=== PATIENT | female | born 1995 | race Caucasian/White ===

== ENCOUNTER 2020-01-14 08:13 | Inpatient (IN) | payer MEDICAID ==
[~2020-01-14] VITALS: Ht 167.6 cm; Wt 61.0 kg
[~2020-01-14 08:13] MED LIST: IBUP50CH2
[2020-01-14] MEDS ORDERED: SODIUM CHLORIDE 0.9% 1,000 ML IV ONE ×2 (08:19)
[2020-01-14] MEDS ORDERED: ONDANSETRON HCL 4 MG/2 ML VIAL IV ONE (08:30)
[2020-01-14] MEDS ORDERED: HYDROmorphone HCL 2 MG/ML VL IV ONE (08:30)
[2020-01-14 08:54] LABS: Basophils # (auto) 0 10 ^3/uL (0-0.2); Basophils % (auto) 0.7 % (0.0-2.0); Eosinophils # (auto) 0.1 10 ^3/uL (0-0.8); Eosinophils % (auto) 1.5 % (0.0-7.0); Hematocrit 47.5 % (36.0-46.0); Hemoglobin 15.3 g/dL (12.2-16.2); Lymphocytes # (auto) 2.4 10 ^3/uL (0.4-5.4); Lymphocytes % (auto) 37.3 % (10.0-50.0); Mean Corpuscular Hemoglobin 30.4 pg (28.0-32.0); Mean Corpuscular Hgb Conc. 32.1 g/dL (32.0-36.0); Mean Corpuscular Volume 94.4 fL (80.0-100.0); Monocytes # (auto) 0.5 10 ^3/uL (0-1.3); Monocytes % (auto) 8.4 % (0.0-12.0); Neutrophils # (auto) 3.4 10 ^3/uL (1.6-8.6); Neutrophils % (auto) 52.1 % (37.0-80.0); Nucleated Red Blood Cells % 0.2 %; Platelet Count (auto) 221 10^3/uL (140-450); Red Blood Cells 5.03 10^6/uL (4.0-5.20); Red Cell Distribution Width 13.2 % (11.8-14.3); White Blood Cell 6.5 10^3/uL (4.4-10.8)
[2020-01-14 09:17] LABS: Albumin 3.7 g/dL (3.4-5.0); BUN/Creatinine Ratio 12.4; Calcium 8.8 mg/dL (8.5-10.1); Potassium 4.4 mmol/L (3.5-5.1)
[2020-01-14 09:20] LABS: Bilirubin, Total 0.3 mg/dL (0.2-1.0); Total Protein 8.3 g/dL (6.4-8.2)
[2020-01-14] MEDS ORDERED: SODIUM CHLORIDE 0.9% 1,000 ML IV SCH ×5 (09:31→17:18)
[2020-01-14] MEDS ORDERED: InsuLIN R (HUMAN) 100 UNITS in SODIUM CHL 0.9% 99 ML IV SCH (09:31)
[2020-01-14] MEDS ORDERED: INSULIN LANTUS (GLARGINE) 1 /0.01ml (100units/ml) SC ONE ×2 (09:45→11:30)
[2020-01-14] MEDS ORDERED: DEXTROSE (50%) 50ML SYRG IV PRN ×2 (09:45→11:30)
[2020-01-14] MEDS ORDERED: ACCU-CHEK COMFORT CURVE STRIP VI SCH (10:30)
[2020-01-14 10:32] LABS: Magnesium 2.1 mg/dL (1.6-2.6); Phosphorus 4.2 mg/dL (2.5-4.90)
[2020-01-14] MEDS ORDERED: MORPHINE SULF INJ 2 MG/ML SYRINGE 1ML IV PRN (10:45)
[2020-01-14] MEDS ORDERED: NITROGLYCERIN 0.4 MG SL TAB SL PRN (10:45)
[2020-01-14] MEDS: SODIUM CHLORIDE 0.9% 1,000 ML IV SCH ×3 (11:18→17:15)
[2020-01-14] MEDS ORDERED: PROMETHAZINE HCL 25 MG/ML 1ML IV PRN (11:30)
[2020-01-14] MEDS ORDERED: LORazepam 0.5 MG TAB PO PRN (11:30)
[2020-01-14] MEDS: InsuLIN R (HUMAN) 100 UNITS in SODIUM CHL 0.9% 99 ML IV SCH ×7 (11:30→19:45)
[2020-01-14] MEDS ORDERED: cefTRIAXone 1GM/50ML D5W 50 ML IV ONE (11:30)
[2020-01-14] MEDS ORDERED: ACETAMINOPHEN 500 MG TAB PO PRN (11:30)
[2020-01-14] MEDS ORDERED: LIDOCAINE 2% JELLY 11ml (GLYDO) ONE (12:05)
[2020-01-14 12:25] LABS: BUN/Creatinine Ratio 12.2; Calcium 8.2 mg/dL (8.5-10.1); Potassium 4.5 mmol/L (3.5-5.1)
[2020-01-14 12:28] LABS: Urine WBC None Seen /hpf (0 - 5)
[2020-01-14 12:55] LABS: Urine Bacteria NONE SEEN /hpf (None Seen); Urine Blood Negative /uL (Negative); Urine Hyaline Cast FEW /lpf (0 - 2); Urine Mucus FEW (None Seen); Urine Specific Gravity 1.023 (1.001-1.035)
[2020-01-14] MEDS ORDERED: FLUCONAZOLE 200MG/100ML 100 ML IV ONE (13:30)
[2020-01-14] MEDS: ACCU-CHEK COMFORT CURVE STRIP VI SCH ×8 (13:30→22:50)
[2020-01-14] MEDS: ACYCLOVIR 400 MG TAB PO SCH ×3 (14:00→22:50)
[2020-01-14] MEDS: metroNIDAZOLE 500MG/100ML 100 ML IV SCH ×2 (14:00→22:48)
[2020-01-14] MEDS ORDERED: levoFLOXacin 500MG 100 ML IV ONE (15:00)
[2020-01-14 16:22] LABS: Sodium 136 mmol/L (136-145)
[2020-01-14 16:23] LABS: Anion Gap 12 (5-15); BUN/Creatinine Ratio 11.1; Blood Urea Nitrogen 10 mg/dL (7-18); Chloride 115 mmol/L (98-107); GFR African American 97 mL/min; GFR Non-African American 80 mL/min; Glucose 158 mg/dL (74-106); Potassium 4.1 mmol/L (3.5-5.1)
[2020-01-14 16:29] LABS: Carbon Dioxide 9 mmol/L (21-32)
[2020-01-14] MEDS ORDERED: D5W 5% 1,000 ML IV SCH (17:15)
[2020-01-14 19:03] LABS: BUN/Creatinine Ratio 11.5; Calcium 7.6 mg/dL (8.5-10.1); Potassium 3.7 mmol/L (3.5-5.1)
[2020-01-14] MEDS: HYDROcodone-ACET 5/325MG TAB PO PRN (21:05)
[2020-01-14 22:41] LABS: BUN/Creatinine Ratio 9.6; Calcium 7.8 mg/dL (8.5-10.1); Potassium 3.7 mmol/L (3.5-5.1)
[2020-01-14] MEDS: FAMOTIDINE 20 MG TAB PO SCH (22:49)
[2020-01-15] VITALS (7 sets, daily range): BP systolic 99–136; BP diastolic 60–76
[2020-01-15] MEDS: LIDOCAINE 2% JELLY 11ml (GLYDO) UR PRN ×3 (00:40→22:04)
[2020-01-15] MEDS: SODIUM CHLORIDE 0.9% 1,000 ML IV SCH ×2 (00:41→06:43)
[2020-01-15] MEDS: ACCU-CHEK COMFORT CURVE STRIP VI SCH ×10 (00:42→22:35)
[2020-01-15] MEDS: MORPHINE SULF INJ 2 MG/ML SYRINGE 1ML IV PRN ×5 (02:30→22:34)
[2020-01-15] MEDS: metroNIDAZOLE 500MG/100ML 100 ML IV SCH ×3 (06:09→22:03)
[2020-01-15 07:50] LABS: Hematocrit 37.9 % (36.0-46.0); Hemoglobin 12.6 g/dL (12.2-16.2); Mean Corpuscular Hemoglobin 30.7 pg (28.0-32.0); Mean Corpuscular Hgb Conc. 33.2 g/dL (32.0-36.0); Mean Corpuscular Volume 92.4 fL (80.0-100.0); Platelet Count (auto) 174 10^3/uL (140-450); Red Blood Cells 4.11 10^6/uL (4.0-5.20); Red Cell Distribution Width 12.9 % (11.8-14.3); White Blood Cell 6.1 10^3/uL (4.4-10.8)
[2020-01-15 07:54] LABS: Band Neutrophils % (manual) 0; Basophils % (manual) 0 (0.0-2.0); Blast Cells 0; Metamyelocytes % 0; Myelocytes % 0; Promyelocytes % 0
[2020-01-15 07:58] LABS: Albumin 2.6 g/dL (3.4-5.0); Calcium 7.7 mg/dL (8.5-10.1); Potassium 3.3 mmol/L (3.5-5.1)
[2020-01-15 08:02] LABS: BUN/Creatinine Ratio 8.8; Bilirubin, Total 0.2 mg/dL (0.2-1.0); Total Protein 5.9 g/dL (6.4-8.2)
[2020-01-15 08:10] LABS: Eosinophils % (manual) 5 (0-7); Lymphocytes % (manual) 63 (10.0-50.0); Monocytes % (manual) 4 (0-12); Reactive Lymphocytes 3
[2020-01-15] MEDS: ACYCLOVIR 400 MG TAB PO SCH ×5 (08:18→22:04)
--- NOTE | 2020-01-15 08:30 | NUR ---
VAGINAL CARE Jelly lidocaine administered as ordered.
[2020-01-15] MEDS ORDERED: cefTRIAXone 1GM/50ML D5W 50 ML IV SCH (09:00)
[2020-01-15] MEDS ORDERED: INSULIN LANTUS (GLARGINE) 1 /0.01ml (100units/ml) SC SCH ×2 (10:00)
[2020-01-15] MEDS: FLUCONAZOLE 200MG/100ML 100 ML IV SCH (10:18)
[2020-01-15] MEDS: levoFLOXacin 500MG 100 ML IV SCH (10:19)
[2020-01-15] MEDS: FAMOTIDINE 20 MG TAB PO SCH ×2 (10:19→22:04)
--- NOTE | 2020-01-15 11:30 | NUR ---
BEDSIDE Dr. Dorantes bedside assessing patient.
[2020-01-15] MEDS ORDERED: POTASSIUM CHL 20 Meq TABLET PO ONE (11:45)
--- NOTE | 2020-01-15 14:50 | NUR ---
VAGINAL CARE Jelly lidocaine administered as ordered.
--- NOTE | 2020-01-15 15:30 | NUR ---
PATIENT ARRIVED FROM ER VIA WHEELCHAIR, ALERT ORIENTED X4, TO ROOM 275B, WAS ABLE TO GET IN BED, ANGUIANO CATHETER TO GRAVITY, URINE YELLOW TO CLEAR, DENIES PAIN AT THIS TIME 0, ROOM ORIENTATION GIVEN TO PT, CALL LIGHT WITHIN REACH
--- NOTE | 2020-01-15 15:35 | NUR ---
SPOKE TO MD Dr. Dorantes ordered [facility] insulin via telephone and in communication order.
[2020-01-15] MEDS ORDERED: DEXTROSE (50%) 50ML SYRG IV PRN (15:45)
--- NOTE | 2020-01-15 16:01 | NUR ---
DR KARSTEN TOURE CALLED WITH NEW ORDERS, WILL SEE PT TOMORROW
--- NOTE | 2020-01-15 16:05 | NUR ---
URINE SAMPLE SENT TO LAB
[2020-01-15] MEDS: InsuLIN REG 1unit/0.01ml Soln (100units/ml) SC SCH ×2 (18:11→22:36)
--- NOTE | 2020-01-15 18:30 | NUR ---
ADMISSION PHOTO LEFT POINTER FINGER, OBTAIN AND FILLED POUT
--- NOTE | 2020-01-15 18:35 | NUR ---
PAGE DR MUÑOZ PT HAS LEFT POINTER FINGER AROUND THE NAIL REDNESS, PUS NOTED AROUND THE NAIL BED, PT STATED IT GOT POCKED WITH A NEEDLE A FEW DAYS AGO AND THEN BECAME LIKE THAT
--- NOTE | 2020-01-15 19:05 | NUR ---
DR MUÑOZ CALLED BACK, MADE AWARE OF PATIENT'S LEFT POINTER FINGER, SAID FOR HOSPITAL LIST TO MANAGE TOMORROW, PT MADE AWARE
[2020-01-16 05:00] VITALS: BP 134/95
[2020-01-16] MEDS: ACYCLOVIR 400 MG TAB PO SCH ×5 (06:18→23:30)
[2020-01-16] MEDS: metroNIDAZOLE 500MG/100ML 100 ML IV SCH ×3 (06:18→23:30)
[2020-01-16] MEDS: ACCU-CHEK COMFORT CURVE STRIP VI SCH ×4 (06:18→23:31)
[2020-01-16] MEDS: MORPHINE SULF INJ 2 MG/ML SYRINGE 1ML IV PRN ×4 (06:19→23:31)
[2020-01-16] MEDS: LIDOCAINE 2% JELLY 11ml (GLYDO) UR PRN ×3 (06:20→23:32)
[2020-01-16] MEDS: InsuLIN REG 1unit/0.01ml Soln (100units/ml) SC SCH ×4 (06:42→23:33)
[2020-01-16 06:59] LABS: Basophils # (auto) 0 10 ^3/uL (0-0.2); Basophils % (auto) 0.8 % (0.0-2.0); Eosinophils # (auto) 0.5 10 ^3/uL (0-0.8); Eosinophils % (auto) 9.1 % (0.0-7.0); Hematocrit 40.4 % (36.0-46.0); Hemoglobin 13.8 g/dL (12.2-16.2); Lymphocytes # (auto) 2.6 10 ^3/uL (0.4-5.4); Lymphocytes % (auto) 50.4 % (10.0-50.0); Mean Corpuscular Hgb Conc. 34.1 g/dL (32.0-36.0); Mean Corpuscular Volume 91.1 fL (80.0-100.0); Monocytes # (auto) 0.4 10 ^3/uL (0-1.3); Monocytes % (auto) 8.1 % (0.0-12.0); Neutrophils # (auto) 1.6 10 ^3/uL (1.6-8.6); Neutrophils % (auto) 31.6 % (37.0-80.0); Nucleated Red Blood Cells % 0.2 %; Platelet Count (auto) 176 10^3/uL (140-450); Red Blood Cells 4.43 10^6/uL (4.0-5.20); Red Cell Distribution Width 12.8 % (11.8-14.3); White Blood Cell 5.1 10^3/uL (4.4-10.8)
--- NOTE | 2020-01-16 07:15 | NUR ---
Opening Shift Note: Assumed care of patient, awake and alert. No S/S of distress/SOB or pain. [place] in place, hung below bladder, patent and draining. Bed in lowest locked position, side rails up x 2, call light within reach. Patient instructed on POC and to call for assist PRN, will continue to monitor for changes Q1hr and PRN.
[2020-01-16 07:24] LABS: Albumin 2.9 g/dL (3.4-5.0); Calcium 8.5 mg/dL (8.5-10.1); Potassium 3.6 mmol/L (3.5-5.1)
[2020-01-16 07:29] LABS: BUN/Creatinine Ratio 9.9; Bilirubin, Total 0.2 mg/dL (0.2-1.0); Total Protein 6.8 g/dL (6.4-8.2)
[2020-01-16 09:00] VITALS: BP 121/87
[2020-01-16] MEDS: FAMOTIDINE 20 MG TAB PO SCH ×2 (09:49→23:30)
[2020-01-16] MEDS: levoFLOXacin 500MG 100 ML IV SCH (09:49)
[2020-01-16] MEDS: FLUCONAZOLE 200MG/100ML 100 ML IV SCH (12:05)
--- NOTE | 2020-01-16 12:07 | NUR ---
DR. AYALA REQUESTED FOR ANGUIANO TO BE DC'd. PATIENT REFUSED TO HAVE ANGUIANO REMOVED AT THIS TIME.
[2020-01-16] MEDS ORDERED: INSU75IN2 SC (12:32)
[2020-01-16 13:00] VITALS: BP 138/91
[2020-01-16 17:00] VITALS: BP 140/74
--- NOTE | 2020-01-16 18:49 | NUR ---
DR. JONAS: Dr. Reeves at bedside.
--- NOTE | 2020-01-16 18:49 | NUR ---
CLOSING NOTE: Patient resting in bed. No S/S of distress at this time. Care endorsed
[2020-01-16 21:00] VITALS: BP 134/80
[2020-01-17] MEDS: MORPHINE SULF INJ 2 MG/ML SYRINGE 1ML IV PRN ×2 (04:53→20:53)
[2020-01-17 05:00] VITALS: BP 127/68
[2020-01-17] MEDS: metroNIDAZOLE 500MG/100ML 100 ML IV SCH ×3 (06:34→22:03)
[2020-01-17] MEDS: ACCU-CHEK COMFORT CURVE STRIP VI SCH ×4 (06:36→22:04)
[2020-01-17] MEDS: ACYCLOVIR 400 MG TAB PO SCH ×5 (06:36→22:04)
[2020-01-17] MEDS: InsuLIN REG 1unit/0.01ml Soln (100units/ml) SC SCH ×4 (06:37→22:36)
[2020-01-17] MEDS: LIDOCAINE 2% JELLY 11ml (GLYDO) UR PRN (06:38)
--- NOTE | 2020-01-17 07:10 | NUR ---
Opening Shift Note: Assumed care of patient, awake and alert. No S/S of distress/SOB or pain. Bed in lowest locked position, side rails up x 2, call light within reach. Patient instructed on POC and to call for assist PRN, will continue to monitor for changes Q1hr and PRN.
[2020-01-17 09:00] VITALS: BP 114/79
[2020-01-17] MEDS: levoFLOXacin 500MG 100 ML IV SCH (10:17)
[2020-01-17] MEDS: FLUCONAZOLE 200MG/100ML 100 ML IV SCH (10:17)
[2020-01-17] MEDS: FAMOTIDINE 20 MG TAB PO SCH ×2 (10:18→22:03)
--- NOTE | 2020-01-17 10:28 | NUR ---
Dr. Parsons at station discussing POC with patient. Addendum: 01/17/20 at 1327 by KRISTIN ESCALERA RN RN Patient not present. discussed POC with this nurse.
[2020-01-17] MEDS: HYDROcodone-ACET 5/325MG TAB PO PRN ×2 (11:57→18:08)
--- NOTE | 2020-01-17 12:07 | NUR ---
Nutrition Assessment Notes: Please see attached link for complete assessment Est Energy needs BW 61 [id number] (25-30 kcal/kgBW), Est Protein needs: 61-73 gms/day (1.0-1.2 gm/kgBW). Will continue to monitor and reassess prn. Addendum: 01/17/20 at [address] Amended: Links added.
[2020-01-17 13:00] VITALS: BP 119/70
[2020-01-17 17:00] VITALS: BP 134/84
--- NOTE | 2020-01-17 19:37 | NUR ---
CLOSING NOTE: Patient resting in bed. No S/S of distress at this time. Care endorsed to NOC RN
--- NOTE | 2020-01-17 20:45 | NUR ---
IV removal 20 GAUGE RAC IV DC'd with sterile technique, catheter fully intact. Pressure dressing applied to site. Patient tolerated procedure well.
--- NOTE | 2020-01-17 20:50 | NUR ---
IV insertion IV access obtained, via clean sterile technique by inserting 20 gauge catheter at left forearm after 1 attempt. IV secured properly. No trauma to site. Patient tolerated procedure well.
[2020-01-17 22:41] VITALS: BP 114/70
[2020-01-18] MEDS: HYDROcodone-ACET 5/325MG TAB PO PRN ×3 (04:58→22:00)
[2020-01-18 05:00] VITALS: BP 102/78
[2020-01-18] MEDS: metroNIDAZOLE 500MG/100ML 100 ML IV SCH (06:04)
[2020-01-18] MEDS: ACYCLOVIR 400 MG TAB PO SCH ×5 (06:04→21:58)
[2020-01-18] MEDS: InsuLIN REG 1unit/0.01ml Soln (100units/ml) SC SCH ×3 (06:24→17:14)
[2020-01-18] MEDS: ACCU-CHEK COMFORT CURVE STRIP VI SCH ×4 (06:24→21:58)
[2020-01-18 09:00] VITALS: BP 122/69
[2020-01-18] MEDS: FLUCONAZOLE 200MG/100ML 100 ML IV SCH (09:23)
[2020-01-18] MEDS: levoFLOXacin 500MG 100 ML IV SCH (09:23)
[2020-01-18] MEDS: FAMOTIDINE 20 MG TAB PO SCH ×2 (09:23→21:58)
--- NOTE | 2020-01-18 10:47 | NUR ---
Per Dr. Begum orders, Bárbara is DC'd at this time. Patient tolerated well. Will continue to monitor.
[2020-01-18] MEDS ORDERED: INSULIN LANTUS (GLARGINE) 1 /0.01ml (100units/ml) SC ONE (12:15)
[2020-01-18 12:55] LABS: Hepatitis A Ab IgM Negative; Hepatitis B Core IgM Negative; Hepatitis B Surface Antigen Negative (Negative); Hepatitis C Antibody Negative (Negative)
[2020-01-18 13:00] VITALS: BP 138/82
[2020-01-18] MEDS ORDERED: DEXTROSE (50%) 50ML SYRG IV PRN (13:45)
[2020-01-18 17:00] VITALS: BP 118/69
[2020-01-18 22:00] VITALS: BP 130/76
[2020-01-18] MEDS ORDERED: InsuLIN REG 1unit/0.01ml Soln (100units/ml) SC SCH (22:00)
--- NOTE | 2020-01-19 02:55 | NUR ---
CLOSING NOTE: Patient asleep in bed. No S/S of distress at this time. Care endorsed.
--- NOTE | 2020-01-19 03:18 | NUR ---
Opening Shift Note Assumed care of patient, pt laying down in bed quietly on right side with eyes closed. Pt is on RA with even and unlabored respirations, equal chest rise and fall present. No S/S of distress/SOB or pain at this time. Bed is in lowest locked position, sire rails up x2, and call light is within reach. Will continue to monitor for changes Q1hr and PRN.
[2020-01-19 05:55] VITALS: BP 102/73
--- NOTE | 2020-01-19 06:15 | NUR ---
PT C/O PAIN PT C/O GENITAL PAIN 11/14, WILL GIVE NORCO ORDERED BY MD. WILL CONTINUE TO MONITOR Q1H AND PRN.
[2020-01-19] MEDS: ACCU-CHEK COMFORT CURVE STRIP VI SCH (06:19)
[2020-01-19] MEDS: ACYCLOVIR 400 MG TAB PO SCH ×2 (06:19→09:20)
[2020-01-19] MEDS: InsuLIN REG 1unit/0.01ml Soln (100units/ml) SC SCH (06:29)
[2020-01-19] MEDS: HYDROcodone-ACET 5/325MG TAB PO PRN (06:30)
--- NOTE | 2020-01-19 06:55 | NUR ---
Closing Note Patient awake and alert sitting up in bed. No S/S of distress/SOB. Care endorsed to Aysha SIM.
[2020-01-19 09:00] VITALS: BP 103/69
[2020-01-19] MEDS ORDERED: ACYC-43 PO (09:15)
[2020-01-19] MEDS ORDERED: FLUC100T34 PO (09:15)
[2020-01-19] MEDS: FAMOTIDINE 20 MG TAB PO SCH (09:21)
--- NOTE | 2020-01-19 09:30 | NUR ---
Dr. Dorantes at bedside to discuss plan of care with patient.
[2020-01-19] MEDS ORDERED: FLUCONAZOLE 100 MG TAB PO SCH (10:00)
[2020-01-19] MEDS ORDERED: INSULIN LANTUS (GLARGINE) 1 /0.01ml (100units/ml) SC SCH (10:00)
--- NOTE | 2020-01-19 12:01 | NUR ---
Discharge instructions given as ordered. Encourage to follow up with Primary care provider as instructed. All questions and concerns addressed. Patient verbalized understanding. Medication reconciliation form completed and copy given to patient. IV removed with catheter intact, pressure dressing applied. Telemetry unit returned to ICU. Patient taken to vehicle via wheelchair with all personal belongings, accompanied by staff. No distress noted at time of departure.
== END 2020-01-19 12:01 | disposition home or self-care (01) | DRG 531 ==
LOC: ER 08:13 → EDBD 08:13 → TELE 08:14 → TELE-WESTW 01-15 15:34 → WEST WING 01-18 11:27
PROVIDERS: ADMIT Internal Medicine; ATTEND Internal Medicine
DX: A60.04 Herpesviral vulvovaginitis (principal); E10.10 Type 1 diabetes mellitus with ketoacidosis without coma; E86.0 Dehydration; G89.4 Chronic pain syndrome; B37.3 Candidiasis of vulva and vagina; E44.1 Mild protein-calorie malnutrition; Z79.4 Long term (current) use of insulin
CPT/HCPCS: 36415; 36600; 71045; 76856; 80048; 80053; 80074; 81001; 82010; 82805; 82962; 83036; 83690; 83735; 83930; 84100; 84702; 85007; 85025; 85027; 85652; 86695; 86696; 86703; 87086; 96365; G0378; J0696; J1450; J1815; J1956; J2405; J3490

== ENCOUNTER 2020-02-04 10:41 | Inpatient (IN) | payer MEDICAID ==
[~2020-02-04] VITALS: Ht 157.5 cm; Wt 81.2 kg
[~2020-02-04 10:41] MED LIST changes: +ACYC-163 PO; +FLUC100T34 PO; +INSU75IN2 SC
[2020-02-04] MEDS ORDERED: SODIUM CHLORIDE 0.9% 1,000 ML IVB ONE (10:53)
[2020-02-04] MEDS ORDERED: ONDANSETRON HCL 4 MG/2 ML VIAL IV ONE (11:00)
[2020-02-04 11:42] LABS: Basophils # (auto) 0.1 10 ^3/uL (0-0.2); Basophils % (auto) 1.1 % (0.0-2.0); Eosinophils # (auto) 0.1 10 ^3/uL (0-0.8); Eosinophils % (auto) 1.5 % (0.0-7.0); Hematocrit 48.8 % (36.0-46.0); Hemoglobin 16.1 g/dL (12.2-16.2); Lymphocytes # (auto) 2.5 10 ^3/uL (0.4-5.4); Lymphocytes % (auto) 30.6 % (10.0-50.0); Mean Corpuscular Hemoglobin 30.8 pg (28.0-32.0); Mean Corpuscular Volume 93.4 fL (80.0-100.0); Monocytes # (auto) 0.2 10 ^3/uL (0-1.3); Monocytes % (auto) 1.8 % (0.0-12.0); Neutrophils # (auto) 5.4 10 ^3/uL (1.6-8.6); Nucleated Red Blood Cells % 0.1 %; Platelet Count (auto) 227 10^3/uL (140-450); Red Blood Cells 5.23 10^6/uL (4.0-5.20); Red Cell Distribution Width 13.6 % (11.8-14.3); White Blood Cell 8.3 10^3/uL (4.4-10.8)
[2020-02-04 11:57] LABS: Albumin 4.4 g/dL (3.4-5.0); Anion Gap 19 (5-15); Blood Urea Nitrogen 16 mg/dL (7-18); Chloride 107 mmol/L (98-107); Potassium 4.1 mmol/L (3.5-5.1); Sodium 132 mmol/L (136-145)
[2020-02-04] MEDS ORDERED: InsuLIN REG 1unit/0.01ml Soln (100units/ml) IV ONE ×2 (12:00→12:45)
[2020-02-04 12:04] LABS: Alanine Aminotransferase 25 U/L (13-56); Alkaline Phosphatase 107 U/L (45-117); Aspartate Aminotransferase 16 U/L (15-37); BUN/Creatinine Ratio 15.7; Bilirubin, Total 0.5 mg/dL (0.2-1.0); GFR African American 84 mL/min; GFR Non-African American 70 mL/min; Lipase 112 U/L (73-393); Total Protein 8.7 g/dL (6.4-8.2)
[2020-02-04 12:08] LABS: Carbon Dioxide 6 mmol/L (21-32); Glucose 414 mg/dL (74-106)
[2020-02-04] MEDS ORDERED: InsuLIN R (HUMAN) 100 UNITS in SODIUM CHL 0.9% 99 ML IV SCH (12:12)
[2020-02-04] MEDS ORDERED: INSULIN LANTUS (GLARGINE) 1 /0.01ml (100units/ml) SC ONE ×2 (12:15→12:45)
[2020-02-04] MEDS ORDERED: DEXTROSE (50%) 50ML SYRG IV PRN (12:15)
[2020-02-04] MEDS ORDERED: MORPHINE SULF INJ 2 MG/ML SYRINGE 1ML IV PRN ×2 (12:45→13:00)
[2020-02-04] MEDS ORDERED: NITROGLYCERIN 0.4 MG SL TAB SL PRN (12:45)
[2020-02-04] MEDS: SODIUM CHLORIDE 0.9% 1,000 ML IV SCH ×3 (12:56→18:48)
[2020-02-04] MEDS: InsuLIN R (HUMAN) 100 UNITS in SODIUM CHL 0.9% 99 ML IV SCH ×3 (13:00→15:19)
[2020-02-04] MEDS ORDERED: TEMAZEPAM 15 MG CAP PO PRN (13:00)
[2020-02-04] MEDS ORDERED: traMADol HCL 50 MG TAB PO PRN (13:00)
[2020-02-04] MEDS: ACCU-CHEK COMFORT CURVE STRIP VI SCH ×7 (13:30→22:36)
[2020-02-04] MEDS ORDERED: ACCU-CHEK COMFORT CURVE STRIP VI SCH (13:30)
[2020-02-04] MEDS ORDERED: METF-929 PO (14:12)
[2020-02-04] MEDS: ACYCLOVIR 400 MG TAB PO SCH ×2 (14:20→22:00)
[2020-02-04 16:00] LABS: Urine Amorphous Crystal FEW /hpf (None Seen); Urine Bacteria FEW /hpf (None Seen); Urine Blood 2+ /uL (Negative); Urine Budding Yeast FEW /hpf (None Seen); Urine Hyaline Cast FEW /lpf (0 - 2); Urine Specific Gravity 1.022 (1.001-1.035); Urine WBC 1 /hpf (0 - 5)
[2020-02-04] MEDS ORDERED: SODIUM CHLORIDE 0.9% 1,000 ML IV SCH (16:32)
[2020-02-04 18:44] LABS: BUN/Creatinine Ratio 15.8; Calcium 8.3 mg/dL (8.5-10.1); Potassium 4.3 mmol/L (3.5-5.1)
[2020-02-04] MEDS: PROMETHAZINE HCL 25 MG/ML 1ML IV PRN (20:01)
[2020-02-04] MEDS: FAMOTIDINE 20 MG TAB PO SCH (21:59)
[2020-02-05] MEDS: ACCU-CHEK COMFORT CURVE STRIP VI SCH ×15 (00:11→23:54)
[2020-02-05 01:16] LABS: BUN/Creatinine Ratio 11.4; Calcium 8.1 mg/dL (8.5-10.1); Potassium 4.1 mmol/L (3.5-5.1)
[2020-02-05] MEDS: SODIUM CHLORIDE 0.9% 1,000 ML IV SCH ×3 (01:23→22:22)
[2020-02-05] MEDS: ACYCLOVIR 400 MG TAB PO SCH ×3 (06:06→22:18)
[2020-02-05] MEDS: ACETAMINOPHEN 500 MG TAB PO PRN ×2 (07:51→15:38)
[2020-02-05] MEDS ORDERED: DEXTROSE (50%) 50ML SYRG IV PRN ×2 (08:30→16:30)
[2020-02-05] MEDS ORDERED: INSULIN LANTUS (GLARGINE) 1 /0.01ml (100units/ml) SC SCH ×2 (10:00)
--- NOTE | 2020-02-05 10:00 | NUR ---
Telemetry admit from SHIPMAN,KARI Morris admitted to Telemetry unit after SBAR received. Patient oriented to Amada kennedy RN, unit, room, bed, and unit policies regarding patient care and visiting hours. Patient now on continuous telemetry monitoring, tele box # 61 and telemetry reading on arrival to unit is SR 72. Patient weighed by bedscale and encouraged to call if they need something.Call light within reach, All questions and concerns addressed, patient verbalized understanding. Addendum: 02/05/20 at 1951 by Amada Marquez RN VS 121/76, P 75, O2 97%, RR 18, ON RA
[2020-02-05 10:19] VITALS: BP 121/76
[2020-02-05] MEDS: FAMOTIDINE 20 MG TAB PO SCH ×2 (10:47→22:18)
[2020-02-05] MEDS: FLUCONAZOLE 100 MG TAB PO SCH (10:48)
[2020-02-05] MEDS ORDERED: InsuLIN REG 1unit/0.01ml Soln (100units/ml) SC SCH (12:00)
--- NOTE | 2020-02-05 12:00 | NUR ---
CRITICAL LAB BS 410, REPEATED BS 389, COVERED WITH INSULIN 15 PER SLIDING SCALE, CONT CARE
[2020-02-05 12:11] LABS: Albumin 2.9 g/dL (3.4-5.0); Calcium 7.9 mg/dL (8.5-10.1); Potassium 3.7 mmol/L (3.5-5.1)
[2020-02-05 12:15] LABS: BUN/Creatinine Ratio 11.8; Bilirubin, Total 0.4 mg/dL (0.2-1.0); Total Protein 5.9 g/dL (6.4-8.2)
[2020-02-05 13:09] VITALS: BP 113/58
--- NOTE | 2020-02-05 16:25 | NUR ---
MD DR KING AT NURSING STATION, UPDATED ON PT STATUS, NEW ORDERS RECEIVED TO UPGRADE TO ICU, INSULIN DRIP PER PROTOCOL, ACCU CHECK Q1HR, NPO AND NS @ 150, CHARGE NURSE AND UNINDENTURED APPRENTICE NOTIFIED, CONT CARE
[2020-02-05] MEDS ORDERED: MAGNESIUM SULFATE 1GM/100ML 200 ML IV ONE (16:30)
--- NOTE | 2020-02-05 16:45 | NUR ---
IV insertion IV access obtained, via clean sterile technique by inserting (2) 22 gauge catheter at Left FA and left AC after 1 attempt at each. IV secured properly. No trauma to site. Patient tolerated well.
[2020-02-05 17:08] VITALS: BP 115/69
[2020-02-05] MEDS: InsuLIN R (HUMAN) 100 UNITS in SODIUM CHL 0.9% 99 ML IV SCH (17:39)
--- NOTE | 2020-02-05 17:39 | NUR ---
INSULIN DRIP PER PROTOCOL INITIATED RPG PROGRAMMER AT BEDSIDE TO WITNESS, BS 225, STARTED AT 2UNITS/HR, PT AXOX4, NO C/O SOB, INSTRUCTED ON S/S OF HYPOGLYCEMIA, PT VERBALIZED UNDERSTANDING, CON CARE
[2020-02-05 17:43] LABS: Basophils # (auto) 0.1 10 ^3/uL (0-0.2); Basophils % (auto) 1.2 % (0.0-2.0); Eosinophils # (auto) 0.3 10 ^3/uL (0-0.8); Eosinophils % (auto) 3.9 % (0.0-7.0); Hematocrit 42.3 % (36.0-46.0); Hemoglobin 14.1 g/dL (12.2-16.2); Lymphocytes # (auto) 3.4 10 ^3/uL (0.4-5.4); Lymphocytes % (auto) 51.8 % (10.0-50.0); Mean Corpuscular Hemoglobin 30.6 pg (28.0-32.0); Mean Corpuscular Hgb Conc. 33.4 g/dL (32.0-36.0); Mean Corpuscular Volume 91.7 fL (80.0-100.0); Monocytes # (auto) 0.3 10 ^3/uL (0-1.3); Monocytes % (auto) 4.6 % (0.0-12.0); Neutrophils # (auto) 2.5 10 ^3/uL (1.6-8.6); Neutrophils % (auto) 38.5 % (37.0-80.0); Nucleated Red Blood Cells % 0.1 %; Platelet Count (auto) 172 10^3/uL (140-450); Red Blood Cells 4.62 10^6/uL (4.0-5.20); Red Cell Distribution Width 13.9 % (11.8-14.3); White Blood Cell 6.6 10^3/uL (4.4-10.8)
[2020-02-05 17:53] LABS: Calcium 8.2 mg/dL (8.5-10.1); Magnesium 2.2 mg/dL (1.6-2.6); Phosphorus 1.5 mg/dL (2.5-4.90); Potassium 3.3 mmol/L (3.5-5.1)
[2020-02-05 18:01] LABS: BUN/Creatinine Ratio 12.5
[2020-02-05] MEDS ORDERED: HYDROcodone-ACET 5/325MG TAB PO PRN (18:30)
[2020-02-05] MEDS: POTASSIUM CHL 20MEQ/100ML 100 ML IV PRN (18:47)
--- NOTE | 2020-02-05 18:47 | NUR ---
POTASSIUM REPLACEMENT POTASSIUM 20MEQ TO BE ADMINISTERED, LATEST LAB 3.3, MD DR KING STATES TO FOLLOW PROTOCOL CONT WITH INSULIN DRIP
--- NOTE | 2020-02-05 19:00 | NUR ---
BS 202, CONT @ 2 UNITS/HR
--- NOTE | 2020-02-05 19:30 | NUR ---
BEDSIDE REPORT GIVEN TO WILBERT SIM
--- NOTE | 2020-02-05 19:40 | NUR ---
Opening Shift Note Assumed care of patient, awake and alert x4. No S/S of distress/SOB, complaints of pain to the abdomen 8/0-10, pain management options discussed, will medicate as ordered. Instructed on POC and to call for assist PRN. Call light within reach, will continue to monitor for changes Q1hr and PRN.
--- NOTE | 2020-02-05 19:50 | NUR ---
WATER AND ICE CHIPS IBETH Zhao said the patient can have water and ice chips, but no food.
[2020-02-05] MEDS: HYDROcodone-ACET 5/325MG TAB PO PRN ×2 (19:53→23:58)
--- NOTE | 2020-02-05 19:53 | NUR ---
PAIN Patient is complaining of pain 8/0-10 to the head, "a pounding headache," [place] administered as ordered for pain per patient's request. Will reassess.
--- NOTE | 2020-02-05 19:55 | NUR ---
Blood sugar glucose check 148. Insulin protocol to change rate from 2 units/hr to 1 unit/hr initiated. Witnessed by second RN Charles.
[2020-02-05 20:10] VITALS: BP 117/57
--- NOTE | 2020-02-05 20:49 | NUR ---
BS 129, no change implemented. Insulin drip remains at 1 unit/hr per protocol.
--- NOTE | 2020-02-05 20:53 | NUR ---
PAIN REASSESSMENT Patient states her headache is exactly the same before the [place], no change. Heat pack given as a secondary measure. Will reassess.
[2020-02-05 22:00] VITALS: BP 117/57
--- NOTE | 2020-02-05 22:26 | NUR ---
BS is 85. Protocol implemented. Insulin infusion stopped per protocol. Next accucheck is at 0000. Witnessed by RONEY Cedillo.
--- NOTE | 2020-02-05 22:44 | NUR ---
MRSA Nares and Urine Bacterial Culture collected and sent to lab via [employer] system.
[2020-02-05 23:46] LABS: Urine Bacteria NONE SEEN /hpf (None Seen); Urine Blood 3+ /uL (Negative); Urine Mucus FEW (None Seen); Urine Specific Gravity 1.008 (1.001-1.035); Urine WBC 5 /hpf (0 - 5)
--- NOTE | 2020-02-05 23:54 | NUR ---
BS is 83. No change implemented per protocol. Infusion is stopped.
--- NOTE | 2020-02-05 23:58 | NUR ---
PAIN Patient is complaining of pain 8/0-10 to the head. [place] administered as ordered for pain per patient's request. Will reassess.
--- NOTE | 2020-02-06 00:58 | NUR ---
PAIN REASSESSMENT Patient states her pain is now a 6/0-10, "it feels better." Will continue to monitor.
[2020-02-06] MEDS: ACCU-CHEK COMFORT CURVE STRIP VI SCH ×15 (01:31→22:27)
--- NOTE | 2020-02-06 01:33 | NUR ---
BS is 87. No change implemented per protocol. Infusion is stopped.
--- NOTE | 2020-02-06 02:59 | NUR ---
BS is 134. Protocol implemented. Insulin infusion started at 1 unit/hr per protocol. Witnessed by RONEY Soto.
--- NOTE | 2020-02-06 04:40 | NUR ---
BS is 123. Protocol implemented. Insulin infusion remains at 1 unit/hr per protocol. Witnessed by RONEY Soto.
[2020-02-06] MEDS: ACETAMINOPHEN 500 MG TAB PO PRN (04:50)
--- NOTE | 2020-02-06 04:50 | NUR ---
Patient is complaining of a headache, 7/0-10, Tylenol administered for pain. Will reassess.
[2020-02-06] MEDS: SODIUM CHLORIDE 0.9% 1,000 ML IV SCH ×3 (05:10→18:12)
[2020-02-06 05:13] VITALS: BP 106/58
--- NOTE | 2020-02-06 05:50 | NUR ---
Patient is resting in bed, she states the headache is still there but she is going to try and sleep. Will continue to monitor.
--- NOTE | 2020-02-06 05:58 | NUR ---
BS is 115. Protocol implemented. Insulin infusion decreased to 0.5 unit/hr per protocol. Witnessed by RONEY Soto.
[2020-02-06] MEDS: ACYCLOVIR 400 MG TAB PO SCH ×3 (06:00→22:26)
--- NOTE | 2020-02-06 06:55 | NUR ---
Closing Note Patient is resting in bed asleep. No S/S of pain or distress noted. Normal Saline is infusing at 150 mls/hr to the LAC. Insulin gtt is infusing at 0.5 units/hr to the LFA. Call light is within reach.
--- NOTE | 2020-02-06 07:30 | NUR ---
DKA BS PROTOCOL Blood sugar is 110. No change in Insulin GTT per protocol. Rate remains at 0.5 U/hr. Patient educated on signs and symptoms of hyperglycemia and/or hypoglycemia and to call for assistance, verbalized understanding.
[2020-02-06] MEDS: HYDROcodone-ACET 5/325MG TAB PO PRN ×2 (07:43→13:46)
--- NOTE | 2020-02-06 08:00 | NUR ---
Opening Shift Note Assumed care of patient, awake, alert and oriented X4. No S/S of distress/SOB, complains of a headache, 02/14, informed will medicate with prescribed pain medication, verbalized understanding. Tele# 61, sinus rhythm @ 61 bpm. IV X2, left forearm, 22 gauge, patent and infusing 0.9% NS @ 150 ml/hr and left upper forearm, 22 gauge, patent and infusing Insulin R @ 0.5 U/hr per DKA protocol. Patient remains NPO. Instructed on POC and to call for assist PRN, verbalized understanding. Bed locked, in lowest position, call light within reach, will continue to monitor for changes Q1hr and PRN.
[2020-02-06 08:58] LABS: BUN/Creatinine Ratio 7.7; Calcium 8.2 mg/dL (8.5-10.1); Potassium 3.2 mmol/L (3.5-5.1)
[2020-02-06 09:00] VITALS: BP 126/61
--- NOTE | 2020-02-06 09:00 | NUR ---
DKA BS PROTOCOL Blood sugar is 115. No change in Insulin GTT per protocol. Rate remains at 0.5 U/hr. Patient educated on signs and symptoms of hyperglycemia and/or hypoglycemia and to call for assistance, verbalized understanding.
[2020-02-06] MEDS: FLUCONAZOLE 100 MG TAB PO SCH (09:22)
[2020-02-06] MEDS: FAMOTIDINE 20 MG TAB PO SCH ×2 (09:23→22:26)
[2020-02-06] MEDS ORDERED: POTASSIUM CHL 20MEQ/100ML 100 ML IV ONE ×2 (09:47→22:45)
[2020-02-06] MEDS: POTASSIUM CHL 20MEQ/100ML 100 ML IV PRN (09:55)
--- NOTE | 2020-02-06 10:07 | NUR ---
DKA Potassium protocol Serum K+ is 3.2, per DKA protocol, KCL 20 meq via IV administered. Patient educated to call if signs and symptoms of infiltration and discomfort occur to IV site, verbalized understanding.
--- NOTE | 2020-02-06 10:30 | NUR ---
DKA BS PROTOCOL Blood sugar is 96. Regular Insulin GTT held per protocol. Patient educated on signs and symptoms of hyperglycemia and/or hypoglycemia and to call for assistance, verbalized understanding.
--- NOTE | 2020-02-06 12:00 | NUR ---
DKA BS PROTOCOL Blood sugar is 95. Regular Insulin GTT held per protocol. Patient educated on signs and symptoms of hyperglycemia and/or hypoglycemia and to call for assistance, verbalized understanding.
[2020-02-06 13:00] VITALS: BP 118/81
--- NOTE | 2020-02-06 13:30 | NUR ---
DKA BS PROTOCOL Blood sugar is 155. Regular Insulin GTT increased to 1.5 U/hr per protocol. Patient educated on signs and symptoms of hyperglycemia and/or hypoglycemia and to call for assistance, verbalized understanding.
[2020-02-06 14:39] LABS: BUN/Creatinine Ratio 7.6; Calcium 8.4 mg/dL (8.5-10.1); Potassium 3.7 mmol/L (3.5-5.1)
[2020-02-06] MEDS ORDERED: IBUPROFEN 800 MG TAB PO ONE (16:15)
--- NOTE | 2020-02-06 16:30 | NUR ---
DKA BS PROTOCOL Blood sugar is 101. Regular Insulin GTT held per protocol. Patient educated on signs and symptoms of hyperglycemia and/or hypoglycemia and to call for assistance, verbalized understanding.
--- NOTE | 2020-02-06 16:48 | NUR ---
ROUNDS Dr Zhao at bedside for rounds, new orders received and followed through. Patient updated on plan of care, verbalized understanding.
[2020-02-06 17:00] VITALS: BP 120/74
--- NOTE | 2020-02-06 18:00 | NUR ---
VENOUS BLOOD GAS Informed Dr Zhao of Venous Blood Gas HC03 of 17.6. Order to continue ICU status and Regular Insulin GTT. Updated patient and RONEY Noel, Charge Nurse on plan of care, verbalized understanding.
--- NOTE | 2020-02-06 18:00 | NUR ---
DKA BS PROTOCOL Blood sugar is 109. Regular Insulin GTT held per protocol. Patient educated on signs and symptoms of hyperglycemia and/or hypoglycemia and to call for assistance, verbalized understanding.
--- NOTE | 2020-02-06 19:17 | NUR ---
Care endorsed to RONEY Encarnacion, night nurse.
--- NOTE | 2020-02-06 19:19 | NUR ---
Opening Shift Note Assumed care of patient, awake and alert x4. No S/S of distress/SOB, no complaints of pain. 22g IV to the LAC infusing NS at 150 mls/hr. Insulin drip is held per protocol from 1630 accucheck. Instructed on POC and to call for assist PRN. Call light within reach, side rails up x2, bed is in the lowest position. All questions and concerns answered, will continue to monitor for changes Q1hr and PRN.
[2020-02-06] MEDS: InsuLIN R (HUMAN) 100 UNITS in SODIUM CHL 0.9% 99 ML IV SCH (19:36)
--- NOTE | 2020-02-06 19:36 | NUR ---
INSULIN GTT PROTOCOL BS is 158. Protocol implemented. Insulin infusion started at 1.5 unit/hr per protocol. Witnessed by RONEY Amaro.
[2020-02-06 20:05] VITALS: BP 128/79
--- NOTE | 2020-02-06 20:54 | NUR ---
INSULIN GTT PROTOCOL BS is 156. Protocol continued at 1.5 units/hr per protocol, no change.
--- NOTE | 2020-02-06 20:58 | NUR ---
Called laboratory regarding the 20:30 BMP lab draw, they said the dental laboratory technician apprentice just got to work and will be by to draw it.
--- NOTE | 2020-02-06 21:16 | NUR ---
office machine technician is at bedside.
[2020-02-06 22:00] VITALS: BP 128/79
[2020-02-06 22:16] LABS: BUN/Creatinine Ratio 6.2; Calcium 8.4 mg/dL (8.5-10.1)
--- NOTE | 2020-02-06 22:24 | NUR ---
Paged Dr. Zhao regarding low potassium level of 3.0. Awaiting call back.
--- NOTE | 2020-02-06 22:26 | NUR ---
Dr. Zhao called back, new orders received to give 60 mg IV Potassium K-rider one time and to check the phosphorus lab. If the phosphorus comes back less than 2, orders received to give sodium phosphate 30 millimole IV over 6 hours. See eMAR and order history. Addendum: 02/07/20 at 0555 by MARIAH TSANG RN 60 MEQ (3 BAGS OF 20 MEQ POTASSIUM)
--- NOTE | 2020-02-06 22:27 | NUR ---
INSULIN GTT PROTOCOL BS is 108. Protocol implemented and insulin gtt held per protocol. Witnessed by RONEY Mcdaniels. Addendum: 02/07/20 at 0004 by MARIAH TSANG RN BS was 104.
--- NOTE | 2020-02-06 22:43 | NUR ---
First 20 MEQ Potassium K-rider bag started.
--- NOTE | 2020-02-06 23:05 | NUR ---
Dr. Zhao made aware of 2.1 Phosphorus level, order received to recheck phosphorus level in the morning. See order history.
[2020-02-07] MEDS: ACCU-CHEK COMFORT CURVE STRIP VI SCH ×14 (00:02→22:23)
--- NOTE | 2020-02-07 00:03 | NUR ---
INSULIN GTT PROTOCOL BS is 90. Infusion is held per protocol.
[2020-02-07] MEDS ORDERED: POTASSIUM CHL 20MEQ/100ML 100 ML IV ONE ×2 (00:44→03:01)
--- NOTE | 2020-02-07 00:47 | NUR ---
First Potassium K-rider infused. Second bag of 20 MEQ Potassium K-rider started.
--- NOTE | 2020-02-07 01:22 | NUR ---
INSULIN GTT PROTOCOL BS is 99. Infusion is held per protocol.
[2020-02-07] MEDS: HYDROcodone-ACET 5/325MG TAB PO PRN ×3 (01:32→18:10)
--- NOTE | 2020-02-07 01:32 | NUR ---
PAIN Patient is complaining of a headache, 7/0-10. [place] 5 administered. Will reassess.
[2020-02-07] MEDS: SODIUM CHLORIDE 0.9% 1,000 ML IV SCH ×3 (02:20→18:10)
--- NOTE | 2020-02-07 02:32 | NUR ---
PAIN REASSESSMENT Patient states her pain is now 6/0-10, "It is better now." Will continue to monitor.
[2020-02-07 02:46] LABS: Anion Gap 12 (5-15); BUN/Creatinine Ratio 5.2; Blood Urea Nitrogen 3 mg/dL (7-18); Calcium 8.3 mg/dL (8.5-10.1); Carbon Dioxide 13 mmol/L (21-32); Chloride 113 mmol/L (98-107); GFR African American 162 mL/min; GFR Non-African American 134 mL/min; Glucose 133 mg/dL (74-106); Sodium 138 mmol/L (136-145)
--- NOTE | 2020-02-07 03:09 | NUR ---
INSULIN GTT PROTOCOL BS is 164. Protocol implemented and insulin drip resumed at 1.5 units/hr. Addendum: 02/07/20 at 0316 by MARIAH TSANG RN Witness by fan Walls.
--- NOTE | 2020-02-07 03:30 | NUR ---
Second Potassium K-rider bag infused. Third bag of 20 MEQ Potassium K-rider started.
--- NOTE | 2020-02-07 04:34 | NUR ---
INSULIN GTT PROTOCOL BS is 149. Protocol implemented and insulin drip decreased to 1 unit/hr. Witnessed by RONEY Escudero.
--- NOTE | 2020-02-07 05:53 | NUR ---
THIRD 20 MEQ POTASSIUM K-RIDER BAG INFUSED. NEXT POTASSIUM LAB DRAW IS AT 08:30.
--- NOTE | 2020-02-07 05:54 | NUR ---
60 MEQ (3 BAGS OF 20 MEQ POTASSIUM) Addendum: 02/07/20 at 0556 by MARIAH TSANG RN *WRONG NOTE PLEASE IGNORE.
[2020-02-07 05:57] VITALS: BP 124/59
[2020-02-07] MEDS: ACYCLOVIR 400 MG TAB PO SCH ×3 (06:02→22:23)
--- NOTE | 2020-02-07 06:02 | NUR ---
INSULIN GTT PROTOCOL BS is 117. Protocol implemented and insulin drip decreased to 0.5 unit/hr. Witnessed by RONEY Cedillo.
--- NOTE | 2020-02-07 06:53 | NUR ---
Closing Note Patient is resting in bed, no complaints of pain or distress. Normal Saline is infusing at 150 mls/hr to the LAC. Insulin gtt is infusing at 0.5 units/hr to the LFA. Call light is within reach.
[2020-02-07 08:00] LABS: BUN/Creatinine Ratio 6.3; Calcium 8.4 mg/dL (8.5-10.1); Potassium 3.8 mmol/L (3.5-5.1)
--- NOTE | 2020-02-07 08:00 | NUR ---
Opening Shift Note Assumed care of patient, awake, alert and oriented X4. No S/S of distress/SOB or pain. Tele# 61, sinus bradycardia @ 57 bpm. IV X2, left antecubital, 22 gauge, patent and infusing 0.9% NS @ 150 ml/hr and left upper forearm, 22 gauge, patent and infusing Insulin R @ 0.5 U/hr per DKA protocol. Patient remains NPO. Instructed on POC and to call for assist PRN, verbalized understanding. Bed locked, in lowest position, call light within reach, will continue to monitor for changes Q1hr and PRN.
[2020-02-07 09:00] VITALS: BP 120/77
--- NOTE | 2020-02-07 09:00 | NUR ---
DKA BS PROTOCOL Blood sugar is 124. Rate increased to 1.0 U/hr per protocol. Patient educated on signs and symptoms of hyperglycemia and/or hypoglycemia and to call for assistance, verbalized understanding.
[2020-02-07] MEDS: FLUCONAZOLE 100 MG TAB PO SCH (09:15)
[2020-02-07] MEDS: FAMOTIDINE 20 MG TAB PO SCH ×2 (09:15→22:22)
--- NOTE | 2020-02-07 10:30 | NUR ---
DKA BS PROTOCOL Blood sugar is 111. Rate decreased to 0.5 U/hr per protocol. Patient educated on signs and symptoms of hyperglycemia and/or hypoglycemia and to call for assistance, verbalized understanding.
--- NOTE | 2020-02-07 12:00 | NUR ---
DKA BS PROTOCOL Blood sugar is 106. Regular Insulin GTT held per protocol. Patient educated on signs and symptoms of hyperglycemia and/or hypoglycemia and to call for assistance, verbalized understanding.
[2020-02-07 13:00] VITALS: BP 130/77
--- NOTE | 2020-02-07 13:30 | NUR ---
DKA BS PROTOCOL Blood sugar is 110. Regular Insulin GTT resumed @ 0.5 U/hr per protocol. Patient educated on signs and symptoms of hyperglycemia and/or hypoglycemia and to call for assistance, verbalized understanding.
--- NOTE | 2020-02-07 15:00 | NUR ---
DKA BS PROTOCOL Blood sugar is 175. Rate increased to 1.5 U/hr per protocol. Patient educated on signs and symptoms of hyperglycemia and/or hypoglycemia and to call for assistance, verbalized understanding.
[2020-02-07 15:28] LABS: BUN/Creatinine Ratio 4.9; Calcium 8.7 mg/dL (8.5-10.1); Potassium 3.7 mmol/L (3.5-5.1)
--- NOTE | 2020-02-07 15:54 | NUR ---
ROUNDS Dr Zhao at bedside for rounds, new orders received and followed through. Notify Dr Zhao if HC03 on venous blood gas is below 18. IF HC03 is 18 or higher, discontinue Regular Insulin GTT, start on Consistent Carb diet and downgrade to Tele.
--- NOTE | 2020-02-07 16:15 | NUR ---
Est energy needs [id number] kcal (20-25 kcal/kg BW 81.2kg) est protein needs 50-75g (1-1.5g/kg IBW 50kg) Will reassess prn. Addendum: 02/07/20 at [address] Amended: Links added.
[2020-02-07] MEDS: InsuLIN R (HUMAN) 100 UNITS in SODIUM CHL 0.9% 99 ML IV SCH (16:30)
--- NOTE | 2020-02-07 16:30 | NUR ---
DKA BS PROTOCOL Blood sugar is 178. Rate remains @ 1.5 U/hr per protocol. Patient educated on signs and symptoms of hyperglycemia and/or hypoglycemia and to call for assistance, verbalized understanding.
[2020-02-07 17:00] VITALS: BP 125/71
--- NOTE | 2020-02-07 18:00 | NUR ---
DKA BS PROTOCOL Blood sugar is 116. Rate decreased to 0.5 U/hr per protocol. Patient educated on signs and symptoms of hyperglycemia and/or hypoglycemia and to call for assistance, verbalized understanding.
--- NOTE | 2020-02-07 18:20 | NUR ---
Venous Blood Gas HC03 18.1. Informed Dr Zhao, verbalized understanding. New orders received and followed through. Patient downgraded to Tele status and insulin GTT stopped. Informed RONEY Mcdaniels, night Charge Nurse, verbalized understanding.
[2020-02-07] MEDS ORDERED: INSU1INJ SC ×2 (18:36)
--- NOTE | 2020-02-07 19:13 | NUR ---
Care endorsed to RONEY Encarnacion, night nurse.
--- NOTE | 2020-02-07 19:35 | NUR ---
Opening Shift Note Assumed care of patient, awake and alert x4. No S/S of distress/SOB or pain noted. 22g IV to the LFA which is infusing NS at 150mls/hr. Instructed on POC and to call for assist PRN. Call light within reach, side rails up x2, bed is in the lowest position. All questions and concerns answered, will continue to monitor for changes Q1hr and PRN.
[2020-02-07 20:10] VITALS: BP 126/93
[2020-02-07 22:00] VITALS: BP 126/93
[2020-02-07] MEDS ORDERED: ACCU-CHEK COMFORT CURVE STRIP VI SCH (22:00)
[2020-02-07] MEDS ORDERED: INSULIN LISPRO (HUMAN) 100 UNITS/ML ML SC SCH (22:00)
[2020-02-07] MEDS: InsuLIN REG 1unit/0.01ml Soln (100units/ml) SC SCH (22:16)
--- NOTE | 2020-02-07 22:20 | NUR ---
Paged Dr. Zhao regarding elevated blood sugar for [address] Zhao is not on tonight, will page marketing regional consultant.
[2020-02-07] MEDS: PROMETHAZINE HCL 25 MG/ML 1ML IV PRN (22:23)
--- NOTE | 2020-02-07 22:32 | NUR ---
Paged Dr. Crissy Durand who is covering Dr. Zhao, left a message and awaiting call back.
[2020-02-07 22:38] LABS: Calcium 8.7 mg/dL (8.5-10.1); Potassium 4.7 mmol/L (3.5-5.1)
[2020-02-07 22:40] LABS: BUN/Creatinine Ratio 6.9
--- NOTE | 2020-02-07 22:45 | NUR ---
Laboratory called, critical lab value glucose:460. Will inform
--- NOTE | 2020-02-07 22:47 | NUR ---
Dr. Crissy Durand called back, he was informed of critical blood sugar, no new orders received. Will continue to monitor patient.
[2020-02-08] MEDS: SODIUM CHLORIDE 0.9% 1,000 ML IV SCH ×4 (01:23→17:10)
[2020-02-08 03:14] LABS: Calcium 8.8 mg/dL (8.5-10.1); Potassium 3.1 mmol/L (3.5-5.1)
[2020-02-08 03:17] LABS: BUN/Creatinine Ratio 8.4
[2020-02-08] MEDS: HYDROcodone-ACET 5/325MG TAB PO PRN ×3 (03:48→12:38)
--- NOTE | 2020-02-08 03:48 | NUR ---
PAIN Patient is complaining of a headache, 7/0-10. [place] 5 administered. Will reassess.
--- NOTE | 2020-02-08 04:48 | NUR ---
Patient is resting in bed asleep, will continue to monitor.
[2020-02-08 05:00] VITALS: BP 123/70
[2020-02-08 05:42] LABS: BUN/Creatinine Ratio 13.8; Calcium 8.3 mg/dL (8.5-10.1); Potassium 3.3 mmol/L (3.5-5.1)
[2020-02-08] MEDS: ACYCLOVIR 400 MG TAB PO SCH ×2 (06:15→13:44)
[2020-02-08] MEDS: ACCU-CHEK COMFORT CURVE STRIP VI SCH ×3 (06:16→17:00)
[2020-02-08] MEDS: InsuLIN REG 1unit/0.01ml Soln (100units/ml) SC SCH ×3 (06:16→17:00)
--- NOTE | 2020-02-08 07:30 | NUR ---
Opening Note Received report from car shifter RN. Patient is awake, alert and oriented x4. No signs or symptoms of distress noted at this time, Patient complains of headache 8/ and is requesting NORCO. Will medicate per orders. Patient is on room air, respirations even and unlabored. Reviewed plan of care with patient, patient verbalized understanding. Bed in low and locked position, call light within reach. Will continue to monitor Q1 hour and PRN.
[2020-02-08] MEDS ORDERED: INSULIN LISPRO (HUMAN) 100 UNITS/ML ML SC SCH (08:00)
--- NOTE | 2020-02-08 08:10 | NUR ---
Call from Dr. Zhao New orders received to place patient on moderate sliding scale. Will implement new orders. Will continue to monitor Q1 hour and PRN.
[2020-02-08 08:31] VITALS: BP 116/60
[2020-02-08] MEDS: FAMOTIDINE 20 MG TAB PO SCH (08:32)
[2020-02-08] MEDS: FLUCONAZOLE 100 MG TAB PO SCH (08:33)
[2020-02-08] MEDS ORDERED: DEXTROSE (50%) 50ML SYRG IV PRN (09:45)
[2020-02-08 12:56] VITALS: BP 130/79
[2020-02-08 15:10] LABS: Calcium 8.9 mg/dL (8.5-10.1); Potassium 3.8 mmol/L (3.5-5.1)
[2020-02-08 15:12] LABS: BUN/Creatinine Ratio 10.4
--- NOTE | 2020-02-08 16:35 | NUR ---
Dr. Zhao at station Updating this RN on plan of care. Patient to discharge home later today. Will implement new orders. Will continue to monitor.
[2020-02-08 16:50] VITALS: BP 130/79
[2020-02-08 16:59] VITALS: BP 133/82
--- NOTE | 2020-02-08 18:20 | NUR ---
Discharge Discharge instructions given as ordered. Encourage to follow up with pcp and bookkeeping machine operator as instructed. All questions and concerns addressed. Patient verbalized understanding. Medication reconciliation form completed and copy given to patient. IV removed, catheter intact, pressure dressing applied. quality assurance monitor final removed and sent back to ICU. Patient taken down to private vehicle via wheelchair, with all personal belongings, accompanied by staff member. No signs or symptoms of distress noted at this time.
[2020-02-08] MEDS ORDERED: InsuLIN REG 1unit/0.01ml Soln (100units/ml) SC SCH (22:00)
== END 2020-02-08 18:20 | disposition home or self-care (01) | DRG 420 ==
LOC: ER 10:41 → OVERFLOW 10:42 → TELE-WESTW 02-05 10:33
PROVIDERS: ADMIT Internal Medicine; ATTEND Internal Medicine
DX: E11.10 Type 2 diabetes mellitus with ketoacidosis without coma (principal); E66.9 Obesity, unspecified; E88.09 Other disorders of plasma-protein metabolism, not elsewhere classified; M06.9 Rheumatoid arthritis, unspecified; Z79.4 Long term (current) use of insulin; Z68.32 Body mass index [BMI] 32.0-32.9, adult; Z88.2 Allergy status to sulfonamides; Z91.11 Patient's noncompliance with dietary regimen; Z79.899 Other long term (current) drug therapy
CPT/HCPCS: 36415; 36416; 36600; 71046; 80048; 80053; 81001; 82010; 82805; 82962; 83605; 83690; 83735; 83930; 84100; 84484; 85025; 87040; 87081; 87086; 96365; 96372; 96375; G0378; J1815; J2405; J3480

== ENCOUNTER 2020-07-11 12:34 | Emergency (ER) | payer MEDICAID ==
[~2020-07-11] VITALS: Ht 157.5 cm; Wt 77.1 kg
[~2020-07-11 12:34] MED LIST changes: +INSU1INJ SC; -INSU75IN2 SC; +METF-929 PO
[2020-07-11] MEDS ORDERED: InsuLIN REG 1unit/0.01ml Soln (100units/ml) SC ONE (14:30)
[2020-07-11] MEDS ORDERED: cefTRIAXone W LIDOCAINE 1 GM IM IM ONE (14:30)
[2020-07-11 14:34] VITALS: BP 122/83
[2020-07-11] MEDS ORDERED: cefTRIAXone SOD 1,000 MG VL IM ONE (15:00)
== END 2020-07-11 16:16 | disposition home or self-care (01) ==
LOC: ER 12:34
DX: K02.9 Dental caries, unspecified (principal); E11.65 Type 2 diabetes mellitus with hyperglycemia; Z88.2 Allergy status to sulfonamides
CPT/HCPCS: 71045; 96372; 99283; J0696; J1815

== ENCOUNTER 2021-02-24 18:12 | Emergency (ER) | payer MEDICAID ==
[~2021-02-24] VITALS: Ht 157.5 cm; Wt 81.6 kg
[2021-02-25 00:37] VITALS: BP 110/48
[2021-02-25] MEDS ORDERED: cefTRIAXone SOD 1,000 MG VL IM ONE (02:15)
[2021-02-25] MEDS ORDERED: KETOROLAC TROMETH 60MG/2ML VIAL IM ONE (02:15)
== END 2021-02-25 02:41 | disposition home or self-care (01) ==
LOC: ER 18:12
DX: N75.0 Cyst of Bartholin's gland (principal); E10.9 Type 1 diabetes mellitus without complications; Z79.4 Long term (current) use of insulin; Z79.899 Other long term (current) drug therapy; Z88.2 Allergy status to sulfonamides
CPT/HCPCS: 81002; 81025; 82962; 96372; 99283; J0696; J1885

== ENCOUNTER 2022-12-15 09:36 | Inpatient (IN) | payer MEDICAID ==
[~2022-12-15] VITALS: Ht 157.5 cm; Wt 91.8 kg
[~2022-12-15 09:36] MED LIST changes: -ACYC-163 PO; +ACYC1TAB2 PO
[2022-12-15] MEDS ORDERED: SODIUM CHLORIDE 0.9% 1,000 ML IV ONE ×3 (10:00→17:15)
[2022-12-15 10:24] LABS: Basophils # (auto) 0 10 ^3/uL (0-0.2); Basophils % (auto) 0.3 % (0.0-2.0); Eosinophils # (auto) 0 10 ^3/uL (0-0.8); Hematocrit 50.1 % (36.0-46.0); Hemoglobin 16.1 g/dL (12.2-16.2); Lymphocytes # (auto) 1.6 10 ^3/uL (0.4-5.4); Lymphocytes % (auto) 9.4 % (10.0-50.0); Mean Corpuscular Hemoglobin 30.4 pg (28.0-32.0); Mean Corpuscular Hgb Conc. 32.1 g/dL (32.0-36.0); Mean Corpuscular Volume 94.6 fL (80.0-100.0); Monocytes # (auto) 0.4 10 ^3/uL (0-1.3); Monocytes % (auto) 2.1 % (0.0-12.0); Neutrophils # (auto) 15.4 10 ^3/uL (1.6-8.6); Neutrophils % (auto) 88.2 % (37.0-80.0); Nucleated Red Blood Cells % 0.1 %; Red Cell Distribution Width 13.2 % (11.8-14.3); White Blood Cell 17.4 10^3/uL (4.4-10.8)
[2022-12-15 10:45] LABS: Albumin 4.5 g/dL (3.4-5.0); Calcium 9.1 mg/dL (8.5-10.1); Potassium 4.5 mmol/L (3.5-5.1)
[2022-12-15 10:50] LABS: Bilirubin, Total 0.7 mg/dL (0.2-1.0); Total Protein 9.2 g/dL (6.4-8.2)
[2022-12-15 10:55] LABS: BUN/Creatinine Ratio 12.2 (10.0-20.0)
[2022-12-15] MEDS ORDERED: PROCHLORPERAZINE EDISYLATE 5 MG/ML 2ML VIAL IV ONE (11:00)
[2022-12-15 12:02] LABS: Urine Bacteria NONE SEEN /hpf (None Seen); Urine Blood TRACE /uL (Negative); Urine Specific Gravity 1.027 (1.001-1.035); Urine WBC 11 /hpf (0 - 5)
[2022-12-15] MEDS ORDERED: InsuLIN R (HUMAN) 100 UNITS in SODIUM CHL 0.9% 99 ML IV SCH (12:15)
[2022-12-15] MEDS ORDERED: SODIUM CHLORIDE 0.9% 2,000 ML IV ONE (12:15)
[2022-12-15] MEDS ORDERED: diphenhdrAMINE HCL 50 MG/1 ML VL IV ONE (15:00)
[2022-12-15] MEDS ORDERED: HALOPERIDOL LACTATE 5 MG/ML INJ VIAL IM ONE ×2 (15:00→16:15)
[2022-12-15 15:01] LABS: BUN/Creatinine Ratio 11.3 (10.0-20.0); Calcium 8.6 mg/dL (8.5-10.1); Potassium 5.4 mmol/L (3.5-5.1)
[2022-12-15] MEDS ORDERED: DEXTROSE (50%) 50ML SYRG IV PRN ×2 (16:15→20:15)
[2022-12-15] MEDS ORDERED: MORPHINE SULFATE INJ 2 MG/ml SYRG IV PRN (16:15)
[2022-12-15] MEDS ORDERED: DOCUSATE SOD 100 MG CAP PO PRN (16:15)
[2022-12-15] MEDS ORDERED: PANTOPRAZOLE 40 MG/10 ML VIAL INJ IV ONE (16:15)
[2022-12-15] MEDS: SODIUM CHLORIDE 0.9% 1,000 ML IV SCH (16:15)
[2022-12-15] MEDS ORDERED: ONDANSETRON HCL 4 MG/2 ML VIAL IV PRN (16:15)
[2022-12-15] MEDS ORDERED: hydrALAZINE HCL 20 MG/ML VL IV PRN (16:30)
[2022-12-15] MEDS: ACCU-CHEK COMFORT CURVE STRIP VI SCH ×5 (16:30→22:30)
[2022-12-15] MEDS ORDERED: SODIUM BICARBONATE 8.4 % INJ 50ML VIAL IV ONE (16:30)
[2022-12-15 17:27] LABS: Creatinine, Urine 26 mg/dL (30.0-125.0); Sodium Urine 60 mmol/L (40-220)
[2022-12-15 18:39] LABS: Calcium 8.7 mg/dL (8.5-10.1); Potassium 5.1 mmol/L (3.5-5.1)
[2022-12-15 18:43] LABS: BUN/Creatinine Ratio 11.8 (10.0-20.0)
[2022-12-15] MEDS: InsuLIN R (HUMAN) 100 UNITS in SODIUM CHL 0.9% 99 ML IV SCH (20:14)
[2022-12-15 22:32] LABS: BUN/Creatinine Ratio 13.2 (10.0-20.0); Calcium 8.8 mg/dL (8.5-10.1)
[2022-12-16] MEDS ORDERED: InsuLIN REG 1unit/0.01ml Soln (100units/ml) ONE (00:14)
[2022-12-16] MEDS: ACCU-CHEK COMFORT CURVE STRIP VI SCH ×16 (00:24→22:30)
[2022-12-16] MEDS: SODIUM CHLORIDE 0.9% 1,000 ML IV SCH ×3 (01:18→19:15)
[2022-12-16 02:34] LABS: BUN/Creatinine Ratio 14.4 (10.0-20.0); Potassium 4.2 mmol/L (3.5-5.1)
[2022-12-16 05:43] LABS: Basophils # (auto) 0 10 ^3/uL (0-0.2); Basophils % (auto) 0.2 % (0.0-2.0); Eosinophils # (auto) 0 10 ^3/uL (0-0.8); Hematocrit 48.8 % (36.0-46.0); Hemoglobin 16.2 g/dL (12.2-16.2); Lymphocytes # (auto) 2.4 10 ^3/uL (0.4-5.4); Mean Corpuscular Hemoglobin 31.2 pg (28.0-32.0); Mean Corpuscular Hgb Conc. 33.1 g/dL (32.0-36.0); Mean Corpuscular Volume 94.3 fL (80.0-100.0); Monocytes # (auto) 1.9 10 ^3/uL (0-1.3); Monocytes % (auto) 9.6 % (0.0-12.0); Neutrophils # (auto) 15.4 10 ^3/uL (1.6-8.6); Neutrophils % (auto) 78.2 % (37.0-80.0); Red Blood Cells 5.18 10^6/uL (4.0-5.20); Red Cell Distribution Width 13.2 % (11.8-14.3); White Blood Cell 19.7 10^3/uL (4.4-10.8)
[2022-12-16 05:59] LABS: Albumin 4.3 g/dL (3.4-5.0); Calcium 9.1 mg/dL (8.5-10.1); Potassium 4.1 mmol/L (3.5-5.1)
[2022-12-16 06:04] LABS: BUN/Creatinine Ratio 13.6 (10.0-20.0); Bilirubin, Total 0.6 mg/dL (0.2-1.0); Total Protein 8.7 g/dL (6.4-8.2)
[2022-12-16] MEDS: PANTOPRAZOLE 40 MG/10 ML VIAL INJ IV SCH (09:41)
[2022-12-16 11:37] LABS: BUN/Creatinine Ratio 12.6 (10.0-20.0); Calcium 8.8 mg/dL (8.5-10.1); Potassium 3.7 mmol/L (3.5-5.1)
[2022-12-16 14:36] LABS: BUN/Creatinine Ratio 14.7 (10.0-20.0); Potassium 3.9 mmol/L (3.5-5.1)
[2022-12-16 19:35] LABS: Magnesium 2.5 mg/dL (1.6-2.6); Phosphorus 2.8 mg/dL (2.5-4.90)
[2022-12-16] MEDS: InsuLIN R (HUMAN) 100 UNITS in SODIUM CHL 0.9% 99 ML IV SCH (20:18)
[2022-12-16 21:17] LABS: BUN/Creatinine Ratio 13.3 (10.0-20.0); Calcium 8.7 mg/dL (8.5-10.1); Potassium 3.6 mmol/L (3.5-5.1)
[2022-12-16] MEDS ORDERED: ACETAMINOPHEN 325 MG TAB PO ONE (22:15)
[2022-12-16 22:31] LABS: Calcium 8.3 mg/dL (8.5-10.1); Potassium 3.5 mmol/L (3.5-5.1)
[2022-12-16 22:33] LABS: BUN/Creatinine Ratio 12.3 (10.0-20.0)
[2022-12-17] MEDS: ACCU-CHEK COMFORT CURVE STRIP VI SCH ×13 (00:08→18:00)
[2022-12-17] MEDS: SODIUM CHLORIDE 0.9% 1,000 ML IV SCH ×3 (02:00→18:15)
[2022-12-17 07:54] LABS: Basophils # (auto) 0 10 ^3/uL (0-0.2); Basophils % (auto) 0.6 % (0.0-2.0); Eosinophils # (auto) 0.1 10 ^3/uL (0-0.8); Eosinophils % (auto) 0.8 % (0.0-7.0); Lymphocytes # (auto) 2.9 10 ^3/uL (0.4-5.4); Lymphocytes % (auto) 33.9 % (10.0-50.0); Monocytes # (auto) 0.6 10 ^3/uL (0-1.3); Monocytes % (auto) 6.9 % (0.0-12.0); Neutrophils % (auto) 57.8 % (37.0-80.0); Nucleated Red Blood Cells % 0.1 %; Red Blood Cells 4.57 10^6/uL (4.0-5.20); White Blood Cell 8.7 10^3/uL (4.4-10.8)
[2022-12-17 07:55] LABS: Hematocrit 41.5 % (36.0-46.0); Hemoglobin 14.3 g/dL (12.2-16.2); Mean Corpuscular Hemoglobin 31.3 pg (28.0-32.0); Mean Corpuscular Hgb Conc. 34.4 g/dL (32.0-36.0); Mean Corpuscular Volume 90.9 fL (80.0-100.0); Red Cell Distribution Width 13.1 % (11.8-14.3)
[2022-12-17 08:22] LABS: BUN/Creatinine Ratio 15.2 (10.0-20.0); Calcium 8.5 mg/dL (8.5-10.1); Potassium 3.3 mmol/L (3.5-5.1)
[2022-12-17 08:23] LABS: Magnesium 2.4 mg/dL (1.6-2.6); Phosphorus 1.8 mg/dL (2.5-4.90)
[2022-12-17] MEDS: PANTOPRAZOLE 40 MG/10 ML VIAL INJ IV SCH (09:59)
[2022-12-17 16:21] LABS: Anion Gap 8 (5-15); BUN/Creatinine Ratio 14.5 (10.0-20.0); Blood Urea Nitrogen 12 mg/dL (7-18); Calcium 8.5 mg/dL (8.5-10.1); Carbon Dioxide 21 mmol/L (21-32); Chloride 105 mmol/L (98-107); GFR African American 105 mL/min; GFR Non-African American 86 mL/min; Glucose 215 mg/dL (74-106); Sodium 134 mmol/L (136-145)
[2022-12-17 16:25] LABS: Potassium 2.7 mmol/L (3.5-5.1)
[2022-12-17] MEDS ORDERED: POTASSIUM CHL 20 Meq TABLET PO ONE (17:15)
[2022-12-17 19:15] VITALS: BP 125/62
== END 2022-12-17 19:33 | disposition home or self-care (01) | DRG 420 ==
LOC: ER 09:36 → TELE 16:13 → UNDODEPER 12-17 19:20 → TELE 12-17 19:33
PROVIDERS: ADMIT Nurse Practitioner Family; ATTEND Internal Medicine
DX: E11.10 Type 2 diabetes mellitus with ketoacidosis without coma (principal); N17.9 Acute kidney failure, unspecified; Z88.2 Allergy status to sulfonamides; D72.829 Elevated white blood cell count, unspecified; E86.0 Dehydration
CPT/HCPCS: 36415; 36600; 71045; 74176; 80048; 80053; 81001; 81025; 82010; 82570; 82805; 82962; 83036; 83605; 83735; 83880; 83930; 83935; 84100; 84300; 84702; 85025; 87040; 87086; 96361; 96365; 96372; 96375; C9113; G0378; J1815; J2405